=== PATIENT | male | born 1955 ===

== ENCOUNTER 2021-04-01 04:58 | Emergency (ER) | payer MEDICARE, OTHER ==
[2021-04-01] MEDS ORDERED: Lidocaine 2% 100 MG/5 ML Syringe IOSS ONE ×2 (04:59→14:45)
[2021-04-01] MEDS ORDERED: Furosemide 40 MG/4 ML VIAL IM ONE (06:00)
--- NOTE | 2021-04-01 06:14 | EDM.PDOC ---
ED HPI GENERAL MEDICAL PROBLEM - General Chief Complaint: Respiratory Problem Stated Complaint: EMS Time Seen by Provider: 04/01/21 05:30 Source of Information: Reports: Patient, EMS, RN History Limitations: Reports: No Limitations - History of Present Illness INITIAL COMMENTS - FREE TEXT/NARRATIVE: ED with c/o SOB Denied fever, no cough, denied chest pain, SOB x 1 month, incr eased edema past couple months. Slipped down getting out of recliner this am, equired assistance to get up and then decided to come to ED. Lives at home alone, independently. Does not use walker. EMS noted house fair cleanliness, Recliner appeared central location and sleep area for patient. Clothing unkempt, On BP med unsure name. Has not seen PCP 6-9 months. Last PCP in [place]. Recent move to [facility] but not established care. - Related Data Allergies Allergy/AdvReac Type Severity Reaction Status Date / Time No Known Allergies Allergy Verified 04/01/21 05:13 Home Meds: Home Meds Blood Pressure Pill PO DAILY 04/01/21 [History] Past Medical History Other Cardiovascular History: CHF Other Gastrointestinal History: Hernia, abdominal Musculoskeletal History: Reports: Gout - Past Surgical History Dermatological Surgical History: Reports: Skin Graft Social & Family History - Tobacco Use Tobacco Use Status *Q: Never Tobacco User - Caffeine Use Caffeine Use: Reports: Soda - Recreational Drug Use Recreational Drug Use: No ED ROS GENERAL - Review of Systems Review Of Systems: Comprehensive ROS is negative, except as noted in HPI. ED EXAM, GENERAL - Physical Exam Exam: See Below Exam Limited By: No Limitations General Appearance: Alert, Mild Distress, Obese Eye Exam: Bilateral Eye: EOMI Ears: Hearing Loss Nose: Normal Inspection Throat/Mouth: Normal Inspection Head: Atraumatic, Normocephalic Neck: Normal Inspection Respiratory/Chest: Decreased Breath Sounds, Crackles (bases). No: Rhonchi, Wheezing Cardiovascular: Normal Peripheral Pulses GI/Abdominal: Normal Bowel Sounds Extremities: Pedal Edema Neurological: Alert, Oriented Psychiatric: Normal Affect Skin Exam: Warm, Dry, Normal Color, Other (skin graft upper and lower extremities, excoriation to groin with foul odor.) Course - Vital Signs Last Recorded V/S: Last Vital Signs Temp 97.3 F 04/01/21 05:30 Pulse 91 04/01/21 07:45 Resp 28 H 04/01/21 05:30 BP 102/64 04/01/21 05:30 Pulse Ox 90 L 04/01/21 07:45 - Orders/Labs/Meds Orders: Active Orders 24 hr Category Date Time Status RT Aerosol Therapy [RC] ASDIRECTED Care 04/01/21 15:00 Active Labs: Laboratory Tests 04/01/21 04/01/21 04/01/21 Range/Units 05:25 06:35 06:42 WBC 9.6 (5.0-10.0) 10^3/uL RBC 3.05 L (4.6-6.2) 10^6/uL Hgb 7.3 L (14.0-18.0) g/dL Hct 24.4 L (40.0-54.0) % MCV 80.0 (80-100) fL MCH 23.9 L (27.0-34.0) pg MCHC 29.9 L (33.0-35.0) g/dL Plt Count 159 (150-450) 10^3/uL Neut % (Auto) 70.3 (42.2-75.2) % Lymph % (Auto) 23.8 (20.5-50.1) % [place] % (Auto) 5.2 (2-8) % Eos % (Auto) 0.5 L (1.0-3.0) % Baso % (Auto) 0.2 (0.0-1.0) % D-Dimer, Quantitative (0-400) ng/mL Sodium 143 (136-145) mmol/L Potassium 7.1 H* (3.5-5.1) mmol/L Chloride 109 H (98-107) mmol/L Carbon Dioxide 13 L (21-32) mmol/L Anion Gap 28.1 H (7-13) mEq/L BUN 141 H (7-18) mg/dL Creatinine 21.35 H* (0.70-1.30) mg/dL Est Cr Clr Drug Dosing 3.79 mL/min Estimated GFR (MDRD) 2 BUN/Creatinine Ratio 6.6 (No establ ref range) Glucose 114 H (70-99) mg/dL POC Glucose (70-99) mg/dL Calcium 7.0 L (8.5-10.1) mg/dL Magnesium 1.5 L (1.8-2.4) mg/dL Total Bilirubin 0.3 (0.2-1.0) mg/dL AST 17 (15-37) U/L ALT 17 (16-63) U/L Alkaline Phosphatase 66 (46-116) U/L Troponin I High Sens 147 H* (<=76) pg/mL B-Natriuretic Peptide 826 H (0-100) pg/ml Total Protein 6.0 L (6.4-8.2) g/dL Albumin 1.6 L (3.4-5.0) g/dL Globulin 4.4 Albumin/Globulin Ratio 0.36 Amylase 43 (25-115) U/L Lipase 139 (73-393) U/L SARS-CoV-2 RNA (DEB) Negative (NEGATIVE) 04/01/21 04/01/21 04/01/21 Range/Units 06:42 08:03 08:25 WBC (5.0-10.0) 10^3/uL RBC (4.6-6.2) 10^6/uL Hgb (14.0-18.0) g/dL Hct (40.0-54.0) % MCV (80-100) fL MCH (27.0-34.0) pg MCHC (33.0-35.0) g/dL Plt Count (150-450) 10^3/uL Neut % (Auto) (42.2-75.2) % Lymph % (Auto) (20.5-50.1) % [place] % (Auto) (2-8) % Eos % (Auto) (1.0-3.0) % Baso % (Auto) (0.0-1.0) % D-Dimer, Quantitative > 5000 H (0-400) ng/mL Sodium (136-145) mmol/L Potassium (3.5-5.1) mmol/L Chloride (98-107) mmol/L Carbon Dioxide (21-32) mmol/L Anion Gap (7-13) mEq/L BUN (7-18) mg/dL Creatinine (0.70-1.30) mg/dL Est Cr Clr Drug Dosing mL/min Estimated GFR (MDRD) BUN/Creatinine Ratio (No establ ref range) Glucose (70-99) mg/dL POC Glucose 92 135 H (70-99) mg/dL Calcium (8.5-10.1) mg/dL Magnesium (1.8-2.4) mg/dL Total Bilirubin (0.2-1.0) mg/dL AST (15-37) U/L ALT (16-63) U/L Alkaline Phosphatase (46-116) U/L Troponin I High Sens (<=76) pg/mL B-Natriuretic Peptide (0-100) pg/ml Total Protein (6.4-8.2) g/dL Albumin (3.4-5.0) g/dL Globulin Albumin/Globulin Ratio Amylase (25-115) U/L Lipase (73-393) U/L SARS-CoV-2 RNA (DEB) (NEGATIVE) Meds: Medications Discontinued Medications Generic Name Dose Route Start Last Admin Trade Name Freq PRN Reason Stop Dose Admin Albuterol Confirm 04/01/21 07:37 04/01/21 07:45 Albuterol 0.083% 2.5 Mg/3 Ml Neb Soln Administered 04/01/21 07:38 10 mg Dose Administration 10 mg .ROUTE .STK-MED ONE Albuterol 10 mg 04/01/21 15:00 Albuterol 0.083% 2.5 Mg/3 Ml Neb Soln NEB 04/01/21 15:01 ONETIME ONE Calcium Chloride Confirm 04/01/21 07:48 04/01/21 08:37 Calcium Chloride 10% 1 Gm/10 Ml Syringe Administered 04/01/21 07:49 Not Given Dose 1 gm .ROUTE .STK-MED ONE Calcium Chloride 1 gm 04/01/21 08:13 04/01/21 08:15 Calcium Chloride 10% 1 Gm/10 Ml Syringe IVPUSH 04/01/21 08:14 1 gm ONETIME ONE Administration Dextrose/Water 50 ml 04/01/21 07:58 04/01/21 08:08 50% Dextrose In Water 50 Ml Syringe IV 04/01/21 07:59 50 ml ONETIME ONE Administration Dextrose/Water 50 ml 04/01/21 08:03 04/01/21 08:08 50% Dextrose In Water 50 Ml Syringe IVPUSH 04/01/21 08:04 50 ml ONETIME ONE Administration Furosemide 40 mg 04/01/21 06:00 04/01/21 06:37 Furosemide 40 Mg/4 Ml Vial IM 04/01/21 06:01 40 mg ONETIME ONE Administration Insulin Human Regular 10 unit 04/01/21 07:57 04/01/21 08:07 Insulin Regular, Human 100 Units/Ml 3 Ml Vial IV 04/01/21 07:58 10 units ONETIME ONE Administration Lidocaine HCl 5 mg 04/01/21 08:14 04/01/21 14:43 Lidocaine 2% 100 Mg/5 Ml Syringe IOSS 04/01/21 08:15 Not Given ONETIME ONE Lidocaine HCl 100 mg 04/01/21 08:14 04/01/21 14:44 Lidocaine 2% 100 Mg/5 Ml Syringe IOSS 04/01/21 08:15 Not Given ONETIME ONE Lidocaine HCl 100 mg 04/01/21 04:59 Lidocaine 2% 100 Mg/5 Ml Syringe IOSS 04/01/21 05:00 .STK-MED ONE Sodium Polystyrene Sulfonate 45 gm 04/01/21 07:58 04/01/21 08:08 Sodium Polystyrene Sulfonate 15 Gm/60 Ml Susp 60 Ml Bot PO 04/01/21 07:59 45 gm NOW ONE Administration Sodium Polystyrene Sulfonate Confirm 04/01/21 08:03 04/01/21 08:10 Sodium Polystyrene Sulfonate 15 Gm/60 Ml Susp 60 Ml Bot Administered 04/01/21 08:04 Not Given Dose 15 gm .ROUTE .STK-MED ONE Sodium Polystyrene Sulfonate Confirm 04/01/21 08:10 04/01/21 08:37 Sodium Polystyrene Sulfonate 15 Gm/60 Ml Susp 60 Ml Bot Administered 04/01/21 08:11 Not Given Dose 30 gm .ROUTE .STK-MED ONE - Re-Assessments/Exams Free Text/Narrative Re-Assessment/Exam: 04/01/21 06:19 Difficult IV start r/t edema and full thickness skin grafts. [address] Ruth[address] IO per Dr. Ruth. Dr Ela Martinez accepting of patient. Lab results received. Critical values. TC Dr Mahmood and ICU hospitalist. Acepting. for further eval and management. VS stable. Tx via Guardian rotor. Departure - Departure Time of Disposition: 09:05 Disposition: DC/Tfer to Acute Hospital 02 Condition: Critical, Undetermined Clinical Impression: New onset a-fib, Positive D-dimer, Hyperkalemia, Hypomagnesemia CHF (congestive heart failure) Qualifiers: Heart failure type: unspecified Heart failure chronicity: acute Qualified Code(s): I50.9 - Heart failure, unspecified Anemia Qualifiers: Anemia type: due to chronic kidney disease Chronic kidney disease stage: stage 4 (severe) Qualified Code(s): N18.4 - Chronic kidney disease, stage 4 (severe) Renal failure, acute Qualifiers: Acute renal failure type: unspecified Qualified Code(s): N17.9 - Acute kidney failure, unspecified - Discharge Information *PRESCRIPTION DRUG MONITORING PROGRAM REVIEWED*: No *COPY OF PRESCRIPTION DRUG MONITORING REPORT IN PATIENT MONSERRAT: No Referrals: PCP,None [Primary Care Provider] - Forms: ED Department Discharge Sepsis Event Note (ED) - Evaluation Sepsis Screening Result: No Definite Risk
--- NOTE | 2021-04-01 07:17 | CR ---
PROCEDURE INFORMATION: Exam: XR Chest Exam date and time: 04/01/2021 6:12 AM Age: 65 years old Clinical indication: Shortness of breath; Additional info: SOB TECHNIQUE: Imaging protocol: XR of the chest. Views: 1 view. COMPARISON: No relevant prior studies available. FINDINGS: Lungs: Slight haziness over the lower right lung suspected to be due to the obliquity and overlapping chest wall, although slight atelectasis not excluded. No consolidation. Pleural spaces: Left anterior obliquity, therefore a small amount of left lateral basilar pleural fluid not excluded. No suggestion of a pneumothorax. Heart/Mediastinum: Cardiomegaly. Bones/joints: Spurring at several disc levels. No visible acute bony disease. IMPRESSION: Cardiomegaly. Questionable small amount of left basilar pleural fluid or simulation of this by obliquity. Slight atelectasis in the lower right lung not excluded.
[2021-04-01 07:19] LABS: ANION GAP 28.1 mEq/L (7-13)
[2021-04-01] MEDS ORDERED: Albuterol 0.083% 2.5 MG/3 ML Neb Soln ONE (07:37)
[2021-04-01] MEDS ORDERED: Calcium Chloride 10% 1 GM/10 ML Syringe ONE (07:48)
[2021-04-01] MEDS ORDERED: Insulin Regular, Human 100 Units/ML 3 ML Vial IV ONE (07:57)
[2021-04-01] MEDS ORDERED: 50% Dextrose in Water 50 ML Syringe IV ONE (07:58)
[2021-04-01] MEDS ORDERED: Sodium Polystyrene Sulfonate 15 GM/60 ML Susp 60 ML Bot PO ONE (07:58)
[2021-04-01] MEDS ORDERED: Sodium Polystyrene Sulfonate 15 GM/60 ML Susp 60 ML Bot ONE ×2 (08:03→08:10)
[2021-04-01] MEDS ORDERED: 50% Dextrose in Water 50 ML Syringe IVPUSH ONE (08:03)
[2021-04-01] MEDS ORDERED: Calcium Chloride 10% 1 GM/10 ML Syringe IVPUSH ONE (08:13)
[2021-04-01] MEDS: Lidocaine 2% 100 MG/5 ML Syringe IOSS ONE ×5 (08:20→14:44)
[2021-04-01] MEDS ORDERED: Albuterol 0.083% 2.5 MG/3 ML Neb Soln NEB ONE (15:00)
== END 2021-04-01 09:08 ==
LOC: DL.ED 04:58
DX: I50.9 Heart failure, unspecified (principal); N18.4 Chronic kidney disease, stage 4 (severe); N17.9 Acute kidney failure, unspecified; I48.91 Unspecified atrial fibrillation; R79.1 Abnormal coagulation profile; E87.5 Hyperkalemia; E83.42 Hypomagnesemia; D63.1 Anemia in chronic kidney disease; Z20.822 Contact with and (suspected) exposure to COVID-19
CPT/HCPCS: 36415; 71045; 80053; 82150; 82947; 83690; 83735; 83880; 84484; 85025; 85379; 93005; 96372; 96374; 96375; 99285; A9270; J1815; J1940; U0002; J7613-GY